=== PATIENT | female | born 1940 | race Caucasian/White ===

== ENCOUNTER 2021-08-26 10:03 | Inpatient (IN) | payer MEDICARE, BC ==
[~2021-08-26] VITALS: Ht 157.5 cm; Wt 37.3 kg
--- NOTE | 2021-08-26 10:12 | NUR ---
BIBRA99 FROM HOME C/O DIZZINESS THIS MORNING, "I HAVE A PROBLEM WITH BALANCE AND COORDIANTION AND LOW SODIUM." VITALS WITHIN NORMAL LIMITS. BREATHING IS REGULAR AND UNLABORED.
[2021-08-26] MEDS ORDERED: IV NS 0.9% 1,000 ML BAG IV ONE (10:30)
--- NOTE | 2021-08-26 10:52 | NUR ---
MOVE SHEET SUBMITTED AND CALLED FOR TELE BED.
[2021-08-26 11:30] LABS: BASOPHILS % (AUTO) 0.5 % (0.0-2.0); EOSINOPHILS % (AUTO) 0.1 % (0.0-6.0); HEMATOCRIT 39 % (33-45); HEMOGLOBIN 13.2 g/dL (11.5-14.8); LYMPHOCYTES # (AUTO) 0.3 K/uL (0.8-4.8); LYMPHOCYTES % (AUTO) 3.8 % (20.0-44.0); MEAN CORPUSCULAR HGB CONC 34 g/dl (31.0-36.0); MEAN CORPUSCULAR VOLUME 103 fL (82-100); MONOCYTES # (AUTO) 0.5 K/uL (0.1-1.30); MONOCYTES % (AUTO) 6.2 % (2.0-12.0); NEUTROPHILS # (AUTO) 7.5 K/uL (1.8-8.9); NEUTROPHILS % (AUTO) 89.4 % (43.0-81.0); PLATELET COUNT (AUTO) 275 K/uL (150-450); RED BLOOD CELL COUNT(AUTO) 3.83 MIL/uL (4.0-5.2); WHITE BLOOD COUNT (AUTO) 8.4 K/uL (4.3-11.0)
[2021-08-26 12:05] LABS: CARBON DIOXIDE 32 mmol/L (21-32); CHLORIDE 91 mmol/L (98-107); CREATININE 0.7 mg/dL (0.6-1.3); GLUCOSE 87 mg/dL (74-106); POTASSIUM 3.8 mmol/L (3.5-5.1); SODIUM SERUM 130 mmol/L (136-145); UREA NITROGEN, BLOOD 18 mg/dL (7-18)
[2021-08-26 12:17] LABS: ALANINE AMINOTRANSFERASE 35 U/L (12-78); ALBUMIN 4.2 g/dL (3.4-5.0); ALKALINE PHOSPHATASE 89 U/L (46-116); ASPARTATE AMINOTRANSFERASE 30 U/L (15-37); BILIRUBIN,DIRECT 0.1 mg/dL (0.0-0.2); BILIRUBIN,TOTAL 0.4 mg/dL (0.2-1.0); TOTAL PROTEIN, SERUM 7.3 g/dL (6.4-8.2)
--- NOTE | 2021-08-26 12:20 | NUR ---
PANEL N-CALL PAGED
[2021-08-26] MEDS ORDERED: SODI1TAB66 PO (12:30)
[2021-08-26] MEDS ORDERED: RIFA550T PO (12:30)
[2021-08-26] MEDS ORDERED: FLUD0.1T PO (12:35)
[2021-08-26] MEDS ORDERED: TOLV15TA PO (12:35)
--- NOTE | 2021-08-26 12:35 | NUR ---
COVID SWAB DONE AND SENT TO LAB
[2021-08-26] MEDS ORDERED: TYLENOL PM PO (12:36)
--- NOTE | 2021-08-26 14:00 | NUR ---
EMERGENCY PHONE NUMBERS JOSÉ ANTONIO [phone] OR [phone] [facility] [phone]
--- NOTE | 2021-08-26 14:00 | NUR ---
REQUESTED BED FROM NURSING SUP
[2021-08-26] MEDS ORDERED: ONDANSETRON HCL/PF 4 MG/2 ML VIAL IVP PRN (16:30)
[2021-08-26] MEDS ORDERED: Z GUARD REMEDY 4 OZ OINT TP PRN ×2 (16:30→18:30)
[2021-08-26] MEDS ORDERED: ACETAMINOPHEN 325 MG TABLET PO PRN (16:30)
[2021-08-26] MEDS ORDERED: MAGNESIUM HYDROXIDE 30 ML UDC PO PRN (16:30)
[2021-08-26] MEDS ORDERED: MAG HYDROX/AL HYDROX/SIMETH 30 ML UDC PO PRN (16:30)
[2021-08-26] MEDS ORDERED: ZOLPIDEM TARTRATE 5 MG TABLET PO PRN (16:30)
--- NOTE | 2021-08-26 17:16 | NUR ---
NURSING SUP CALLED BED 308 -2. WAIT 30 MINUTES BEFORE BRINGING UP
--- NOTE | 2021-08-26 17:51 | NUR ---
REPORT GIVEN TO REKHA OREILLY FOR GIANA
--- NOTE | 2021-08-26 18:11 | NUR ---
THE PATIENT IS TRANSFERED TO [facility] IN STABLE CONDITION AND PER ACLS POLICY
--- NOTE | 2021-08-26 18:35 | NUR ---
RN NOTES PATIENT TRANSFERRED TO UNIT AT ROOM 308-2 VIA [facility], ACCOMPANIED BY 1 ER NURSE AND 1 SNAGGER. PATIENT ABLE TO AMBULATE SHORT DISTANCE W/ SPC AND CGA, UNSTEADY GAIT. PATIENT ORIENTED TO ROOM AND PROVIDED W/ CALL LIGHT REMOTE FOR STAFF ASSISTANCE.
--- NOTE | 2021-08-26 18:48 | NUR ---
RN NOTES PATIENT FOR TELE MONITORING BUT REQUESTED FOR ELECTRODES TO BE APPLIED LATER AFTER SHE EATS PUDDING. TELE BOX AT BEDSIDE TABLE.
--- NOTE | 2021-08-26 19:00 | NUR ---
RN NOTES TIE IN HAND AT BEDSIDE FOR BLE VENOUS DOPPLER US. PATIENT NOT IN ACUTE DISTRESS. SAFETY MEASURES IN PLACE. WILL ENDORSE TO CARD SELLER RN FOR GIANA.
[2021-08-26 20:00] VITALS: BP 169/83
[2021-08-27] VITALS (8 sets, daily range): BP systolic 99–151; BP diastolic 54–82
--- NOTE | 2021-08-27 04:29 | NUR ---
ENDING NOTES: ADMITTED 08/26 1899 FROM THE ER FROM HOME ALERT AND ORIENTATED X4 COOPERATIVE AND PLEASANT. WEARS EYE GLASSES. VERBALIZES HER NEEDS. AMBULATES WITH 1 NURSE ASSIST AND USING HER CANE TO THE BATHROOM Q 2 HOURS TO VOID, UNSTEADY SLOW GAIT BUT DOES INSIST ON GETTING OUT OF BED AND TO THE BATHROOM. NA ON ADMISSION 130 IV INFUSING NS AT 75 ML HOUR. SCDs ON DUPLEX OF THE LOWER EXTREMITIES DONE AT 1999 AND NEGATIVE FOR DVT. PATIENT STATES SHE HAS FALLEN AT HOME NOTED ON HER LEGS AND ARM BRUISES AND ABRASIONS RIGHT PAM RED PUFFY OPEN AREA CLEANED AND DRESSINH APPLIED SR ON THE TELE MONITOR. ORTHO STATIC B/P DONE LYING 130/70 HR 73 SITTING 99/78 HR 76 STANDING 96/57 71 Addendum: 08/27/21 at 0458 by DWAINE ORTIZ RN AMBULATED HER TO THE BATHROOM 1 NURSE AT HER SIDE. ON THE WAY BACK SHE FELT SHE WAS GOIBG TO FAINT, TAKEN BACK TO BED VIA W/C WITH ASSIST OF 2 NURSES SIDERAILS UP BED ALARM ON
[2021-08-27] MEDS: IV NS 0.9% 1,000 ML IV PRN ×2 (06:34→18:58)
--- NOTE | 2021-08-27 08:00 | NUR ---
RN Note Patient received AO x 4, able to responds all stimuli. denies pain or any discomfort. Respiratory even and unlabored on room air. Skin is warm to touch keep clean/dry. Call light within reach, will continue to monitor.
[2021-08-27] MEDS: PANTOPRAZOLE 40 MG TABLET.DR PO SCH (08:15)
[2021-08-27] MEDS: ENSURE ENLIVE CHOC 237 ML CAN PO SCH ×2 (13:54→17:00)
[2021-08-27] MEDS: FLUDROCORTISONE 0.1 MG TABLET PO SCH (15:00)
[2021-08-27] MEDS ORDERED: TOLVAPTAN PO SCH (15:00)
[2021-08-27] MEDS ORDERED: SODIUM CHLORIDE 1000 MG TABLET PO SCH (17:00)
--- NOTE | 2021-08-27 17:01 | NUR ---
Patient has own medications with her in the bag and refused medication form [facility]. Stated "I'll take medicine from my bag, I'm not gonna take from you." Refused have a pharmacy hold it those medications.
--- NOTE | 2021-08-27 18:00 | NUR ---
RN Closing Note Patient resting in bed, remains AO x 4. Respiratory even and unlabored on room air. Denies pain or discomfort. Skin is warm to touch, keep clean/dry, intact iv site. Kept elevated HOB for ensure airway and lower position of the bed for safety. Call light within reach, all needs met. will endorse night shift manager.
--- NOTE | 2021-08-27 18:27 | NUR ---
Follow up with MD for DVT prophylaxis, new order SCD. Patient no need chemical prophylaxis required according MD due to patient ambulatory.
--- NOTE | 2021-08-27 19:30 | NUR ---
ASIC ENGINEER NOTE RECEIVED PATIENT IN BED. A/OX3-4. NOT EXHIBITING S/S OF APPARENT DISTRESS ON ROOM AIR. NO C/O PAIN. NEEDS ATTENDED AT THIS TIME. TELE MONITOR READING SR 80'S-90'S. R. FA 18G RUNNING NS @75CC/HR. CANE NOTED AT BEDSIDE. SAFETY IN PLACE: BED IN LOWEST LOCKED POSITION, BED SIDE COMMODE NOTED IN ROOM. CALL LIGHT WITHIN REACH. WILL CONTINUE WITH PATIENT CARE PLAN.
--- NOTE | 2021-08-27 20:00 | NUR ---
LIQUID NATURAL GAS PLANT OPERATOR NOTE ORTHOSTATIC BP: SUPINE: 151/63, HR-71, O2-97% SITTIN/74, HR-83, O2-98% STANDIN/88, HR-89, O2-97%
[2021-08-27] MEDS: ENSURE ENLIVE 237 ML LIQUID (VANILLA) PO SCH (21:10)
[2021-08-28] VITALS: BP 147/83
[2021-08-28 04:00] VITALS: BP 145/78
--- NOTE | 2021-08-28 05:40 | NUR ---
TONSORIAL ARTIST NOTE MRSA SURVEILLANCE SWAB PERFORMED/COLLECTED AT THIS TIME.
--- NOTE | 2021-08-28 06:34 | NUR ---
SCCM ADMINISTRATOR CLOSING NOTE PATIENT IN BED A/OX4. NO S/S OF APPARENT DISTRESS ON ROOM AIR. DENIES PAIN AND LIGHTHEADEDNESS. NO FLUIDS RUNNING AT THIS TIME-- NS DC'D LAST NIGHT. TELE MONITOR READING SB-SR 50'S-60'S. ALL NEEDS ATTENDED. MRSA SWAB DONE. SAFETY KEPT IN PLACE THE WHOLE SHIFT. WILL ENDORSE TO MORNING SHIFT RN FOR CONTINUITY OF CARE.
[2021-08-28] MEDS: PANTOPRAZOLE 40 MG TABLET.DR PO SCH ×2 (07:30→09:09)
--- NOTE | 2021-08-28 07:30 | NUR ---
ROAD FREIGHT FIRER OPENING NOTES RECEIVED PATIENT AWAKE ON BED AND A/O X4. ON ROOM AIR TOLERATING WELL. NO SOB NOTED. NOT IN DISTRESS. WITH NO COMPLAINTS OF PAIN OR DISCOMFORT AT THIS TIME. WITH IV ACCESS AT RIGHT FOREARM G18, SALINE LOCKED, PATENT AND INTACT. SAFETY MEASURES IN PLACED. CALL LIGHT WITHIN REACH. BED ON LOWEST LOCKED POSITION, SIDE RAILS UP X2. WILL CONTINUE TO MONITOR.
[2021-08-28 07:37] LABS: BASOPHILS % (AUTO) 0.6 % (0.0-2.0); EOSINOPHILS % (AUTO) 0.3 % (0.0-6.0); HEMATOCRIT 38 % (33-45); HEMOGLOBIN 12.7 g/dL (11.5-14.8); LYMPHOCYTES # (AUTO) 0.6 K/uL (0.8-4.8); LYMPHOCYTES % (AUTO) 12.6 % (20.0-44.0); MEAN CORPUSCULAR HGB CONC 34 g/dl (31.0-36.0); MEAN CORPUSCULAR VOLUME 101 fL (82-100); MONOCYTES # (AUTO) 0.4 K/uL (0.1-1.30); MONOCYTES % (AUTO) 8.6 % (2.0-12.0); NEUTROPHILS # (AUTO) 3.6 K/uL (1.8-8.9); NEUTROPHILS % (AUTO) 77.9 % (43.0-81.0); PLATELET COUNT (AUTO) 279 K/uL (150-450); RED BLOOD CELL COUNT(AUTO) 3.71 MIL/uL (4.0-5.2); WHITE BLOOD COUNT (AUTO) 4.6 K/uL (4.3-11.0)
[2021-08-28 08:15] VITALS: BP 134/73
[2021-08-28 08:51] LABS: CREATININE 0.6 mg/dL (0.6-1.3); MAGNESIUM 2.4 mg/dL (1.8-2.4); POTASSIUM 3.2 mmol/L (3.5-5.1)
[2021-08-28] MEDS: FLUDROCORTISONE 0.1 MG TABLET PO SCH (09:07)
[2021-08-28] MEDS: ENSURE ENLIVE 237 ML LIQUID (VANILLA) PO SCH ×2 (09:10→16:26)
[2021-08-28] MEDS: SODIUM CHLORIDE 1000 MG TABLET PO SCH ×2 (09:12→16:27)
--- NOTE | 2021-08-28 09:15 | NUR ---
WOUND CARE CONSULT: PT PRESENTS WITH CACHEXIA, VERY BONY SACRAL AREA, DRY SCABS, LEFT KNEE ABRASION AND MULTIPLE AREAS OF SKIN DISCOLORATION/FRAGILE SKIN. RECOMMENDATIONS MADE FOR WOUND CARE AND SKIN PROTECTION. DISCUSSED WITH NURSING STAFF. IN AGREEMENT WITH PLAN OF CARE. Addendum: 08/28/21 at 0916 by YUSUF DONG WNDNU Amended: Links added.
[2021-08-28] MEDS: ENSURE ENLIVE CHOC 237 ML CAN PO SCH ×3 (09:16→16:26)
[2021-08-28 09:39] LABS: CALCIUM, SERUM 7.9 mg/dL (8.5-10.1)
--- NOTE | 2021-08-28 11:50 | NUR ---
SS Consult: SS consult for living alone, cachexia, and falls. Daughter Neyda was at bedside. Pt. Is an 80-year-old female. Pt. demonstrates adequate insight to the reason for hospitalization. Per pt., she was brought to hospital due to a fall. Pt. was oriented x4, alert, and cooperative. During interview, pt. was capable of following directions, made appropriate eye-contact, and appeared unkempt. As evidenced by bruises on legs and arms. Per pt., those bruises were from past falls. Pt.s speech was at a normal rate. Pt.s mood was elevated. SW explored pt.s hx of mental health and substance abuse. Pt. reported no hx of mental health, substance abuse, suicidal or homicidal ideation. Pt. denies auditory hallucinations, visual hallucinations, paranoia, or delusions. SW explored pt.s living situation. Per pt., she lives alone [[address] [place] [address]]. Daughter Neyda [tele: [phone]] is concerned about her mother living alone, since she constantly falls. Per pt., she has a mobility issue, and this has been going on for many years. Per pt., she reports having adequate support from family and her twin sister Lola who lives down the street from her. Pt. stated that she is ambulatory but uses a cane and a walker when needed. Pt. does not have a caregiver at home, but daughter Neyda mentioned that they are working on getting one. Pt. expressed that she wants to go back home once discharged. Plan: SW provided available resources and pt. accepted. ASHOK made an APS report due to self-neglect and caregiver needed. APS Intake #[id number] Resources Provided: ABUSE PREVENTION: ELDER ABUSE HOTLINE (14/03) ADULT PROTECTIVE SERVICES HOTLINE LONG-TERM CARE [facility] AREA ON AGING (HOTLINE) ADULT DAY HEALTH CARE CARE CENTERS: Private pay or Medi-victor m funded adult day care [place] [facility] , [facility] , [facility] Adult [facility] , [facility] , [facility] Care , [facility] Adult Day[facility] Center , [facility] , [facility] , [place] ALZHEIMERS DISEASE/DEMENTIA: Alzheimers Association Helpline [facility] Chapter www.alz.org/[facility] Department of Aging www.lacity.org Family Caregiver [place] www.caregiver.org [place] Caregiver Resources Center/Family Support www.[facility].org CANCER RESOURCES: Austrian Cancer Society www.cancer.org Cancer Support Community www.CancerSupportVvsb.org: CancerCare www.cancercare.org [facility] Cancer Support [place] www.[facility].org [facility] HEALTH ASSOCIATIONS: AARP www.aarp.org ALS Association (ask for Trista) www.als.org Austrian Diabetes Association www.diabetes.org Austrian Heart Association www.heart.org Austrian Lung Association www.lungusa.org Austrian Parkinson Disease Association www.apdaparkinson.org Austrian Nice , www.redcross.org Arthritis Foundation www.arthritis.org Crohns & Colitis Foundation of Austrian www.ccfa.org/chapters/manjit National Multiple Sclerosis Society www.nationalmssociety.org Myasthenia Gravis Foundation www.myasthenia-ca.org National Stroke Association www.stroke.org CONSERVATORSHIP & GUARDIANSHIP: AARP Deb Montgomery Legal Services Center for Health Care Rights Eldercare Information and Referral Mortgage Closer Foundation [facility]: [facility] Referral Service [facility] Legal Services Office of the Public Guardian [place] EYESIGHT DISORDER RESOURCES: Austrian Macular Degeneration Foundation [facility] www.[facility].org GRIEF AND BEREAVEMENT RESOURCES: The [place] , [facility] THE HOLDEN Connection , [facility] Bereavement Center , [place] HEARING DISORDER RESOURCES: [place] Telephone Access Program Deaf and Disabled Telecommunications Program www.ddtp.cpu.ca.gov HearRx Hearing Centers ([place]) Better Hearing Systems , [place] GLAD ([facility] Agency on Deafness) V/ TTY; Hydroelectric Plant Electrician , [facility] Hearing [facility] -low income hearing aid assistance www.Osperhearingfoundation.org [place] [facility] , [place] HELP AT HOME CAREGIVER SUPPORT: In Home Support Services (Must have Medi-Victor M to be eligible) *Ask for a list of agencies that provide services to assist with care in the home. Local Senior Centers also have listings of care providers. HOME SAFETY MODIFICATIONS AND EQUIPMENT: Senior centers have additional referrals. [place] Shopetti and [place] Investment Dept. Handyworker Program (low income) or Visit http://hcidla.lacity.org/zzw-xcceul-tu for more information National Seating and Mobility and/or ; Forever Active www.foreveractivemed.Beanstalk Tax Stay Home Safe www.Stayhomesafe.com LIFE ALERT RESPONSE SYSTEM: Prime Wire Media Services 318-792-8142 www. DreamFactory Software Life Alert 115-150-2686 www.Drivy Life Station 503-151-2077 www.Signal Vine.Beanstalk Tax Safe Return 685-251-0975 www.alz.or/safereturn Cell Phones for Seniors www.MartMobi Technologies MEALS AND FOOD PROGRAMS: [place] Meals on Wheels [phone] [place] Meals on Wheels [phone] [facility] [phone] [place] to the Homebound [phone] [place] to the Homebound [phone] [facility] to the Homebound [phone] [facility] to the Homebound [phone] [facility] iPero [place] [phone] [facility] [phone] ONE Generation [phone] [facility] [phone] [facility] [phone] Meals on Wheels [phone] For all ages: $6.85/ meal w side. Delivered M-F from 10 am-1pm. Application and payment is done over the phone. Frozen meals available for weekends. Emergency Food [facility] [phone] [facility] Marketing Research Analyst [phone] [facility] [phone] [facility]- Brown bag lunches [phone] [facility] [phone] MEAL/GROCERY DELIVERY PROGRAMS: [facility] Meals [phone]- [facility] [phone]- [facility] Magic Kitchen [phone] Moms Meals [phone] (ask Weber for Discount Select grocery stores may provide delivery. MEDICAL INSURANCE SUPPORT SERVICES: Center for Health Care Rights [phone] Health Insurance Counseling/Advocacy Programs (HICAP)-Must have Medicare. Offers counseling for Medi-Victor M eligibility [phone] Department of Public Marketing Research Analyst 115-322-1239 www.[facility].ca.gov Medicare 085-068-9387 www.socialsecurity.org Social Security [phone] SENIOR ACTIVITY PROGRAMS: *Contact a local senior center, adult school, recreation facility or community college for education, fitness, recreation, and social programs. Aquatic Therapy and Adapted Exercise programs through [facility] [phone] Encore at [facility] 194-082-4235 www.[facility]/encore U- Senior Friends [phone] [place] Senior Programs 657-650-5688 www.oasisnet.org Suddenly 65 www.hgunweph12.com SENIOR CENTERS: [facility] [phone] [facility] [phone] [facility] [phone] [facility] [phone] [facility] Sunset [phone] [facility] [phone] [facility] [phone] [facility] [phone] One Generation, [facility] [phone] [facility] [phone] [facility] [phone] [facility] [phone] [facility] [phone] TRANSPORTATION: Local [facility] Centers may have applications for transportation programs and additional resources. ACCESS Services [phone] Transportation for seniors and disabled persons 7 days a week requiring 254 hr. advance reservation. Must apply and register for program latoya eligible. TiVUS RIDE [phone] or [phone] Transportation for seniors and persons with ADA card/metro disabled card in the [facility]. M-F only. Must register for services. ONE GENERATION [phone] Serves 65 years + in conjunction with city ride program. Must be registered with both programs. A to B Transport [phone] Provides wheelchair/gurney van service. Adult Medical Transport [phone] Accepts Medi-victor m with prior authorization. Care Van [phone] Provides wheelchair Transport. [facility] Wide Transportation [phone] Provides gurney service [facility] [phone] Gurney Transport. [facility] Transportation [phone] wheelchair & gurney transport [facility] Transportation [phone] wheelchair & gurney transport [place] Non-Emergency Transport [phone] wheelchair & gurney transport [facility] Living [place] [phone] Short Term Transportation primarily for adults with disabilities on social security income. Nominal fee may apply and a reservation is required. [facility] Cab [phone] or [phone] [facility] [phone] [place] [address] Services -[phone] For additional programs & services VETERANS RESOURCES: Submissions for Aid and Attendance should be done directly to Federal VA office locatd at : [address] [address] [phone] National Caregiver Support Line [phone] Victor M Gonsalez [facility] Field Office [phone] [place] Department of Affairs [phone] Pension Information [phone]
[2021-08-28 13:24] VITALS: BP 113/76
[2021-08-28 15:44] VITALS: BP 120/72
--- NOTE | 2021-08-28 17:45 | NUR ---
ASSOCIATE DRAFTER NOTES PATIENT WAS SEEN BY DR. ALVARES AND ORDERED PATIENT FOR DISCHARGE TO HOME. DISCHARGE INSTRUCTION AND EDUCATION PROVIDED TO PATIENT AND EXPLAINED MEDICATIONS AND PRESCRIPTIONS. PATIENT VERBALIZED UNDERSTANDING. DISCHARGE FORM AND BELONGINGS LIST FORM SIGNED BY PATIENT. ALL BELONGINGS ACCOUNTED FOR. NAME WRIST BAND AND IV LINE REMOVED. PATIENT WAS PICKED UP BY DAUGHTER AND LEFT IN STABLE CONDITION VIA PRIVATE CAR. CHARGE NURSE AND MD ARE AWARE OF THE DISCHARGE.
== END 2021-08-28 17:45 | disposition home or self-care (01) | DRG 312 ==
LOC: ER 10:28 → TELE 18:18
PROVIDERS: ADMIT Student in an Organized Health Care Education/Training Program; ATTEND Student in an Organized Health Care Education/Training Program
DX: I95.1 Orthostatic hypotension (principal); E87.1 Hypo-osmolality and hyponatremia; R27.0 Ataxia, unspecified; R27.8 Other lack of coordination; Z88.0 Allergy status to penicillin; Z85.6 Personal history of leukemia; Z79.899 Other long term (current) drug therapy; R60.0 Localized edema; E87.6 Hypokalemia; Z82.0 Family history of epilepsy and other diseases of the nervous system
CPT/HCPCS: 36415; 70450-TC; 71045-TC; 80048-TC; 80076-TC; 83605-TC; 83735-TC; 84100-TC; 84443-TC; 84484-TC; 85025-TC; 85730-TC; 87081-TC; 93307-TC; 93970-TC; 97112-TC; 97530-TC; C9803; G0378; J7030